=== PATIENT | male | born 2000 | race Caucasian/White ===

== ENCOUNTER 2020-03-17 06:03 | Day surgery (SDC) | payer BC ==
[2020-03-16 11:42] VITALS: BMI 28.2
[2020-03-17] MEDS ORDERED: AFRIN NASAL MIST 15 ML BOT ONE ×2 (06:25→06:39)
[2020-03-17] MEDS ORDERED: Fentanyl 100 MCG/2 ML VIAL ONE ×3 (06:27→09:21)
[2020-03-17] MEDS ORDERED: Bacitracin Zinc Ointment 30 gm TUBE ONE (06:39)
[2020-03-17] MEDS ORDERED: Lidocaine 1% w/Epinephrine 1:100K 20 ML VIAL ONE (06:39)
[2020-03-17] MEDS ORDERED: Midazolam HCl 2 mg/2 ml Vial ONE (07:16)
[2020-03-17] MEDS ORDERED: SUGAMMADEX SODIUM 200 MG/2 ML VIAL ONE (08:18)
[2020-03-17] MEDS ORDERED: HYDROcodone/Acetaminophen 5/325 mg Tablet ONE (10:39)
[2020-03-17] MEDS ORDERED: Dexamethasone 20 MG/5 ML VIAL ONE (15:42)
[2020-03-17] MEDS ORDERED: PROPOFOL 200 MG/20 ML VIAL ONE (15:42)
[2020-03-17] MEDS ORDERED: Rocuronium Bromide 10 MG/ML (10ML VIAL) ONE (15:42)
[2020-03-17] MEDS ORDERED: EPHEDRINE 25 MG/5 ML SYRINGE ONE (15:42)
[2020-03-17] MEDS ORDERED: Lidocaine 1% PF 5 ML VIAL ONE (15:42)
[2020-03-17] MEDS ORDERED: Ondansetron PF 4 MG/2 ML Vial ONE (15:42)
--- NOTE | 2020-03-18 07:56 | OP ---
DATE OF PROCEDURE: 03/17/2020 PREOPERATIVE DIAGNOSES: 1. Bilateral closed nasal fracture. 2. Nasal septal deviation. 3. Bilateral inferior turbinate hypertrophy. 4. Nasal obstruction. POSTOPERATIVE DIAGNOSES: 1. Bilateral closed nasal fracture. 2. Nasal septal deviation. 3. Bilateral inferior turbinate hypertrophy. 4. Nasal obstruction. PROCEDURES PERFORMED: 1. Bilateral closed reduction nasal fracture. 2. Nasoseptoplasty. 3. Bilateral inferior turbinate submucosal resection. ESTIMATED BLOOD LOSS: 10 mL. COMPLICATIONS: None. ANESTHESIA: GETA. PROCEDURE IN DETAIL: Patient was taken to the operating room and placed supine on the table. General endotracheal anesthesia was obtained by the anesthesia staff. Then 1% lidocaine with 1:100,000 epinephrine was injected into the nasal septum as well as the inferior turbinates. The patient was prepped and draped in standard surgical fashion. The Afrin pledgets were then removed. A Aaron incision was made on the left nasal septum. Submucoperichondrial dissection was performed bilaterally of the deviated portions of the septum, which included the maxillary crest and the crest deviation, as well as the mid portion of the septum. Cartilage and bony deviation was removed, leaving a generous caudal and dorsal strut. Any straight pieces of cartilage were then placed within the cartilage press, pressed, straightened, and then placed between the mucoperichondrial flaps, which were then closed using a 4-0 gut stitch. The inferior turbinates were then punctured with the submucosal Coblation machine, and 3 separate coblations were delivered to the anterior inferior portion of the inferior turbinates. Following this, the nasal cavity was irrigated. All debris was removed. An orogastric tube was placed. Gastric contents and Good splints were then placed in the nasal cavity and sutured with a 3-0 silk stitch. Following this, the nasal bone fractures were able to be mobilized through a nasal approach using the nasal bone elevator. The nasal bones were completely mobilized and then replaced into the normal anatomic and symmetrical position bilaterally. Good splints were placed internally and a Rudolph splint was placed externally. The patient tolerated the procedure well. Job ID: [id number]
== END 2020-03-17 11:10 | disposition home or self-care (01) ==
LOC: SDC 06:03
PROVIDERS: ATTEND Otolaryngology Plastic Surgery within the Head & Neck
PROC: 09BM8ZZ Excision of Nasal Septum, Via Natural or Artificial Opening Endoscopic (ICD-10-PCS; principal; 2020-03-17)
PROC: 0NSBXZZ Reposition Nasal Bone, External Approach (ICD-10-PCS; principal; 2020-03-17)
PROC: 09BL8ZZ Excision of Nasal Turbinate, Via Natural or Artificial Opening Endoscopic (ICD-10-PCS; principal; 2020-03-17)
DX: J34.2 Deviated nasal septum (principal); J34.3 Hypertrophy of nasal turbinates; S02.2XXA Fracture of nasal bones, initial encounter for closed fracture; J34.89 Other specified disorders of nose and nasal sinuses; H91.93 Unspecified hearing loss, bilateral; F17.200 Nicotine dependence, unspecified, uncomplicated; Z79.899 Other long term (current) drug therapy
CPT/HCPCS: J1100; J2250; J2405; J2704; J3010